=== PATIENT | male | born 1970 ===

== ENCOUNTER 2018-02-24 01:10 | Emergency (ER) | payer OTHER, BC ==
--- NOTE | 2018-02-24 01:49 | ED PDOC ---
Lower Extremity Pain/Injury Time Seen by Provider: 02/24/18 01:47 Chief Complaint (Nursing): Lower Extremity Problem/Injury Chief Complaint (Provider): right foot pain History Per: Patient (47 y/o male here for evaluation of right foot injury that occurred at 8pm today when he was jumping on top of hatchet in attempt to loosen machinery. States he has been walking on foot but notes pain with walking now. Did not take any medication prior to ED arrival.) Past Medical History Reviewed: Historical Data, Nursing Documentation, Vital Signs Vital Signs: Last Vital Signs Temp 98 F 02/24/18 01:41 Pulse 85 02/24/18 01:41 Resp 16 02/24/18 01:41 BP 124/84 02/24/18 01:41 Pulse Ox 98 02/24/18 01:41 - Family History Family History: States: No Known Family Hx - Home Medications Home Medications: Ambulatory Orders Medication Instructions Recorded Naproxen 375 mg PO Q8 PRN #21 tablet 02/24/18 - Allergies Allergies/Adverse Reactions: Allergies Allergy/AdvReac Type Severity Reaction Status Date / Time No Known Allergies Allergy Verified 02/24/18 01:41 Review of Systems ROS Statement: Except As Marked, All Systems Reviewed And Found Negative Musculoskeletal: Positive for: Foot Pain Physical Exam - Reviewed Nursing Documentation Reviewed: Yes Vital Signs Reviewed: Yes - Physical Exam Appears: Positive for: Well, Non-toxic, No Acute Distress Head Exam: Positive for: ATRAUMATIC, NORMAL INSPECTION, NORMOCEPHALIC Skin: Positive for: Normal Color, Warm, DRY Eye Exam: Positive for: EOMI, Normal appearance, PERRL ENT: Positive for: Normal ENT Inspection Neck: Positive for: Normal, Painless ROM Cardiovascular/Chest: Positive for: Regular Rate, Rhythm Respiratory: Positive for: CNT, Normal Breath Sounds Gastrointestinal/Abdominal: Positive for: Normal Exam, Soft Back: Positive for: Normal Inspection Extremity: Positive for: Normal ROM, Swelling (right lateral proximal foot; DP 2 +/pt 2+) Neurologic/Psych: Positive for: Alert, Oriented - ECG O2 Sat by Pulse Oximetry: 98 - Progress ED Course And Treament: motrin 600mg x 1 dose XRY OF FOOT: NO ACUTE FX Disposition - Clinical Impression Clinical Impression: Foot contusion - Patient ED Disposition Is Patient to be Admitted: No - Disposition Referrals: Podiatry Clinic [Outside] Disposition: Routine/Home Disposition Time: 02:56 Condition: FAIR Prescriptions: Naproxen 375 mg PO Q8 PRN #21 tablet PRN Reason: Pain, Moderate (4-7) Instructions: Contusion (DC) Forms: [facility] ([place]), [facility] ED School/Work Excuse
[2018-02-24 03:10] VITALS: BP 126/82; PULSE 82; RESP 17; TEMP 98.1
[2018-02-24 04:28] VITALS: O2SAT 98
--- NOTE | 2018-02-24 09:16 | RAD ---
PROCEDURE: Right Foot Radiographs. HISTORY: r/o fx of fifth metatarsal COMPARISON: None. FINDINGS: BONES: No acute fracture dislocation is appreciated. Patient may be postoperative status post partial amputation of the distal segment proximal phalanx right small digit. Clinically correlate. JOINTS: No subluxation or dislocation appreciated. SOFT TISSUES: Unremarkable. OTHER FINDINGS: None. IMPRESSION: No acute fracture or dislocation identified. Questionable prior distal segment proximal phalangeal amputation 5th digit as discussed above.
== END 2018-02-24 03:07 | disposition home or self-care (01) ==
LOC: H.ER 01:10
DX: S90.31XA Contusion of right foot, initial encounter (principal); W22.8XXA Striking against or struck by other objects, initial encounter